=== PATIENT | female | born 1995 | race Hispanic/Latino ===

== ENCOUNTER 2017-05-01 18:21 | Inpatient (IN) | payer MEDICAID ==
[~2017-05-01] VITALS: Ht 144.8 cm; Wt 60.3 kg
[~2017-05-01 18:21] MED LIST: FERR-82 PO; PREN-18 PO
[2017-05-01 19:16] LABS: APPEARANCE,URINE Clear (CLEAR); BILIRUBIN,URINE Negative (NEGATIVE); COLOR,URINE Yellow (YELLOW); GLUCOSE, URINE (UA) Negative (NEGATIVE); KETONES,URINE >=80 mg/dL (NEGATIVE); LEUKOCYTE ESTERASE ,URINE Moderate (NEGATIVE); NITRATE,URINE Negative (NEGATIVE); OCCULT BLOOD,URINE Negative (NEGATIVE); PH,URINE 5.5 (5.0-8.0); PROTEIN,URINE Negative (NEGATIVE)
[2017-05-01 19:21] LABS: RBC,URINE None Seen /HPF (0-1)
[2017-05-01 19:22] LABS: BACTERIA,URINE Rare /HPF (None Seen); WBC,URINE 0-1 /HPF (0-1)
[2017-05-01 20:16] LABS: HEMATOCRIT 26.4 % (36-48); MEAN CORPUSCULAR HEMOGLOBIN 21.4 pg (27.0-33.0); MEAN CORPUSCULAR HGB CONC 31.7 g/dL (32.0-36.0); MEAN CORPUSCULAR VOLUME 67.6 fL (79-99); PLATELET COUNT (AUTO) 209 K/uL (130-400); RED CELL DISTRIBUTION WIDTH 19.7 % (11.0-15.5); WHITE BLOOD COUNT (AUTO) 11.1 K/uL (4.8-10.8)
[2017-05-01] MEDS ORDERED: MEPERIDINE-PF 25 MG/ML SYG IVP PRN (21:15)
[2017-05-01] MEDS ORDERED: PROMETHAZINE HCL 25 MG/ML 1ML AMPULE IM PRN (21:15)
[2017-05-01] MEDS: LACTATED RINGERS 1000ML 1,000 ML IV PRN (21:54)
[2017-05-02] MEDS ORDERED: PREN-196 PO (02:11)
[2017-05-02] MEDS: LACTATED RINGERS 1000ML 1,000 ML IV PRN (04:06)
[2017-05-02] MEDS ORDERED: OXYTOCIN 10 USP UNITS/ML 20 UNIT in LACTATED RINGERS 1000ML 1,000 ML IV SCH (05:45)
[2017-05-02] MEDS ORDERED: LACTATED RINGERS 1000ML 1,000 ML IV ONE (05:57)
[2017-05-02] MEDS ORDERED: OXYTOCIN 10 USP UNITS/ML ONE ×3 (05:58→16:38)
[2017-05-02] MEDS: OXYTOCIN-LR 20 UNITS/1000 ML 1,000 ML IV SCH ×3 (06:05→19:30)
[2017-05-02] MEDS ORDERED: MEPERIDINE-PF 50 MG/ML SYG ONE (09:50)
[2017-05-02] MEDS ORDERED: MEPERIDINE-PF 50 MG/ML SYG IVP PRN (10:00)
[2017-05-02] MEDS ORDERED: MEASLES/MUMPS/RUBELLA VACCINE, LIVE 0.5 ML/VIAL SQ PRN (10:45)
[2017-05-02] MEDS ORDERED: BENZOCAINE/LANOLIN/ALOE VERA 60 ML AEROSOL TP PRN (10:45)
[2017-05-02] MEDS ORDERED: ACETAMINOPHEN 325 MG TAB PO PRN (10:45)
[2017-05-02] MEDS ORDERED: ACETAMINOPHEN-CODEINE 300/30MG TAB PO PRN (10:45)
[2017-05-02] MEDS ORDERED: LANOLIN 30GM OINTMENT TP PRN (10:45)
[2017-05-02] MEDS ORDERED: DIPH,PERTUSS(ACELL),TET VAC/PF 0.5 ML VIAL IM PRN (10:45)
[2017-05-02] MEDS ORDERED: WITCH HAZEL 1 PAD TP PRN (10:45)
[2017-05-02] MEDS ORDERED: IBUPROFEN 600 MG TABLET PO PRN (10:45)
[2017-05-02 13:10] VITALS: BP 107/60
[2017-05-02 15:28] VITALS: BP 108/68
[2017-05-02 19:30] VITALS: BP 98/58
[2017-05-02] MEDS: DOCUSATE SODIUM 100 MG CAP PO SCH (20:45)
[2017-05-02 23:47] VITALS: BP 101/62
[2017-05-03 03:10] VITALS: BP 113/60
[2017-05-03] MEDS: IBUPROFEN 800 MG TAB PO PRN ×2 (04:51→17:26)
[2017-05-03] MEDS: OXYTOCIN-LR 20 UNITS/1000 ML 1,000 ML IV SCH (05:01)
[2017-05-03 06:26] LABS: MEAN CORPUSCULAR HEMOGLOBIN 21.5 pg (27.0-33.0); MEAN CORPUSCULAR HGB CONC 31.5 g/dL (32.0-36.0); MEAN CORPUSCULAR VOLUME 68.3 fL (79-99); NUCLEATED RED BLOOD CELLS 0.1 % (0.0-0.19); PLATELET COUNT (AUTO) 143 K/uL (130-400); RED CELL DISTRIBUTION WIDTH 19.6 % (11.0-15.5); WHITE BLOOD COUNT (AUTO) 10.7 K/uL (4.8-10.8)
[2017-05-03 06:41] LABS: HEMATOCRIT 18.4 % (36-48)
[2017-05-03 07:36] VITALS: BP 93/53
[2017-05-03] MEDS: DOCUSATE SODIUM 100 MG CAP PO SCH (08:21)
[2017-05-03 11:27] VITALS: BP 102/64
[2017-05-03 12:08] LABS: HEPATITIS Bs ANTIGEN SCREEN P Negative (Negative)
[2017-05-03 15:59] VITALS: BP 116/76
[2017-05-03] MEDS ORDERED: MO6B PO (17:04)
[2017-05-03 17:38] LABS: HEMATOCRIT 27.6 % (36-48)
== END 2017-05-03 19:00 | disposition home or self-care (01) | DRG 560 ==
LOC: EDH 18:21 → OBSVTOIN 18:22 → LDH 18:22 → WSH 05-02 13:10
PROVIDERS: ADMIT Obstetrics & Gynecology; ATTEND Obstetrics & Gynecology
PROC: 10E0XZZ Delivery of Products of Conception, External Approach (ICD-10-PCS; principal; 2017-05-02)
PROC: 10907ZC Drainage of Amniotic Fluid, Therapeutic from Products of Conception, Via Natural or Artificial Opening (ICD-10-PCS; 2017-05-02)
PROC: 3E0234Z Introduction of Serum, Toxoid and Vaccine into Muscle, Percutaneous Approach (ICD-10-PCS; 2017-05-02)
PROC: 3E0134Z Introduction of Serum, Toxoid and Vaccine into Subcutaneous Tissue, Percutaneous Approach (ICD-10-PCS; 2017-05-02)
PROC: 30233N1 Transfusion of Nonautologous Red Blood Cells into Peripheral Vein, Percutaneous Approach (ICD-10-PCS; 2017-05-02)
DX: O80 Encounter for full-term uncomplicated delivery (principal); Z23 Encounter for immunization; Z37.0 Single live birth; Z3A.38 38 weeks gestation of pregnancy
CPT/HCPCS: 36415; 36430; 81001; 85027; 86592; 86701; 86850; 86900; 86901; 86922; 87340; 87390; 90715; A4351; J2175; J2550; J2590; J7120; P9016